=== PATIENT | male | born 1965 | race Hispanic/Latino ===

== ENCOUNTER 2016-08-21 09:08 | Emergency (ER) | payer OTHER ==
[~2016-08-21] VITALS: Ht 175.3 cm; Wt 89.8 kg
--- NOTE | 2016-08-21 09:20 | ED GENERAL ADULT ---
History of Present Illness General Chief Complaint: General Adult Stated Complaint: weakness Source: patient, family, old records Exam Limitations: no limitations Vital Signs & Intake/Output Vital Signs & Intake/Output Vital Signs Date Time Temp Pulse Resp B/P B/P Pulse O2 O2 Flow FiO2 Mean Ox Delivery Rate 08/21 1126 97.2 73 16 111/69 98 Room Air 08/21 0912 97.3 83 15 137/82 96 Room Air Room Air Allergies Coded Allergies: venom-honey bee (Mild, HIVES 08/21/16) Reconcile Medications Aspirin (Aspirin*) 81 MG TAB.CHEW 1 TAB PO DAILY HEART HEALTH (Reported) Cinnamon Bark (Cinnamon) 500 MG CAPSULE 2 CAP PO DAILY SUPPLEMENT (Reported) Sitagliptin Phos/Metformin HCl (Janumet XR 50-1,000 MG Tablet) 50 MG-1,000 MG TBMP.24HR 2 TAB PO DAILY DIABETES (Reported) Triage Note: PT TO ED FOR C/C OF WEAKNESS, COLD SWEATS, ABD PAIN THAT HAPPENED AROUND 0700 TODAY WITH VOMITING X 1. FEELS LIKE HE NEEDS TO HAVE BM BUT CAN'T. DIARRHEA YESTERDAY. DENIES UA SYMPTOMS. AFEBRILE IN TRIAGE. PT IS DIABETIC, F/S 134 IN TRIAGE Triage Nurses Notes Reviewed? yes Onset: Abrupt Duration: hour(s): (2.5) Timing: single episode today Severity: mild, moderate Severity Numbers: 5 No Modifying Factors: none Associated Symptoms: diaphoresis HPI: 50-year-old male with a history of NIDDM presents complaining of weakness sweats chills vomiting and abdominal pain that started at 7 AM this morning. Patient reports symptoms started abruptly and he had felt fine the night before. He reports waking up and vomiting one time and had mild lower abdominal pain. Since then he has felt very weak and has been having episodes of sweats and chills. Patient also reports a single episode of diarrhea without blood yesterday. He has not eaten or drank anything yet today. Since the one episode of vomiting his abdominal pain has gone away and he currently denies any pain whatsoever. No sick contacts, recent travel, recent antibiotic use, chest pain back pain or urinary symptoms fever, rash. (ANNELIESE MCGRAW PA-C) Past History Travel History Traveled to [place] past 21 day No Medical History Any Pertinent Medical History? see below for history Neurological: NONE Endocrine: TYPE II DM Blood Disorders: NONE Cancer(s): NONE DIRECTOR OF HOME ECONOMICS/Reproductive: NONE Surgical History Surgical History: none Psychosocial History Who do you live with Spouse What is your primary language Sami Tobacco Use: Never used ETOH Use: occasional use Illicit Drug Use: denies illicit drug use Family History Hx Contributory? No (ANNELIESE MCGRAW PA-C) Review of Systems Review of Systems Constitutional: Reports: see HPI, chills, diaphoresis. EENTM: Reports: no symptoms. Respiratory: Reports: no symptoms. Cardiovascular: Reports: no symptoms. GI: Reports: see HPI, diarrhea, nausea. Genitourinary: Reports: no symptoms. Musculoskeletal: Reports: no symptoms. Skin: Reports: no symptoms. Neurological/Psychological: Reports: see HPI, weakness. Hematologic/Endocrine: Reports: no symptoms. Immunologic/Allergic: Reports: no symptoms. All Other Systems: Reviewed and Negative (ANNELIESE MCGRAW PA-C) Physical Exam Physical Exam General Appearance: well developed/nourished, no apparent distress, alert, awake , anxious Head: atraumatic, normal appearance Eyes: Bilateral: normal appearance, PERRL, EOMI. Ears, Nose, Throat: normal pharynx, normal ENT inspection Neck: normal inspection, supple, full range of motion Respiratory: normal breath sounds, chest non-tender, no respiratory distress, lungs clear Cardiovascular: regular rate/rhythm Peripheral Pulses: 2+ radial (R), 2+ radial (L), 2+ dorsalis pedis (R), 2+ dorsalis pedis (L) Gastrointestinal: normal bowel sounds, soft, non-tender, no organomegaly Back: normal inspection, normal range of motion, no vertebral tenderness Extremities: normal inspection, normal capillary refill, normal range of motion, no edema Neurologic/Psych: no motor/sensory deficits, awake, alert, oriented x 3, normal gait, normal mood/affect Reflexes: 2+: knee (R), knee (L). Skin: intact, normal color, warm/dry Lymphatic: no anterior cervical kita Core Measures ACS in differential dx? Yes CVA/TIA Diagnosis: No Severe Sepsis Present: No Septic Shock Present: No (ANNELIESE MCGRAW PA-C) Progress Differential Diagnoses I considered the following diagnoses in my evaluation of the patient: Acute coronary syndrome, anemia, viral gastroenteritis, IBS, UTI, electrolyte abnormality, DKA, hypoglycemia Plan of Care: Orders Procedure Date/time Status TSH REFLEX 08/21 938 Complete MAGNESIUM 08/21 938 Complete EKG 08/21 932 Active URINALYSIS 08/22 931 Active TROPONIN LEVEL 08/22 931 Complete LIPASE 08/22 931 Complete C-REACTIVE PROTEIN 08/22 931 Complete COMPREHENSIVE METABOLIC PANEL 08/22 931 Complete CBC WITHOUT DIFFERENTIAL 08/22 931 Complete AMYLASE 08/22 931 Complete Laboratory Tests 08/21/16938: Anion Gap 10, Estimated GFR > 60, BUN/Creatinine Ratio 18.6, Glucose 176 H, Calcium 9.2, Magnesium 1.8, Total Bilirubin 0.5, AST 20, ALT 47, Alkaline Phosphatase 66, Troponin I < 0.01, C-Reactive Prot, Quant 1.1 H, Total Protein 6.7, Albumin 4.0, Globulin 2.7, Albumin/Globulin Ratio 1.5, Amylase 57, Lipase 106, TSH &T3 &Free T4 Intrp 0.607, CBC w Diff NO MAN DIFF REQ, RBC 5.19, MCV 86.5, MCH 29.5, RDW 12.6, MPV 8.8, Gran % 72.0, Lymphocytes % 18.1 L, Monocytes % 8.0, Eosinophils % 1.4, Basophils % 0.5, Absolute Granulocytes 4.8, Absolute Lymphocytes 1.2, Absolute Monocytes 0.5, Absolute Eosinophils 0.1, Absolute Basophils 0, PUBS MCHC 34.1 08/21/1638: Magnesium Cancelled, TSH &T3 &Free T4 Intrp Cancelled 945AM: Patient evaluated at bedside and labs drawn. EKG ordered. Patient's abdomen is currently nontender and nondistended and patient denies any pain. At this time currently is reporting weakness. He does not want any medication for pain or nausea. 11:23 AM all labs are within normal limits. EKG is similar to previous and patient reports having a cardiac cath 3 years ago due to abnormal EKG. He denies ever experiencing any chest pain or shortness of breath. Patient is feeling much better after resting and IV fluids. He currently denies any pain and is longer feeling weak. Patient will be discharged home and will follow up with his primary care doctor. Case was discussed with Dr. Centeno and she is in agreement with the plan. (LUCIEN GARCIA,ANNELIESE) Initial ED EKG: normal sinus rhythm, LEFT ATRIAL ABNORMALITY, LAD, ABNORMAL t WAVES, LATERAL LEADS. sIMILAR COMPARED TO PREVIOUS TRACING Prior EKG: unchanged (ANNELIESE MCGRAW PA-C) Departure Departure Disposition: HOME OR SELF CARE Condition: Stable Clinical Impression Primary Impression: Weakness Referrals: YARITZA NELSON (PCP/Family) Additional Instructions: Resting plan fluids continue home medications as directed. Make a follow-up with your primary care doctor to go over all lab results and to reassess symptoms. Return to emergency department as needed. Departure Forms: Customer Survey General Discharge Information (ANNELIESE MCGRAW PA-C) PA/DOUBLE END TENONER SETTER Co-Sign Statement Statement: ED Attending supervision documentation- [X] I saw and evaluated the patient. I have also reviewed all the pertinent lab results and diagnostic results. I agree with the findings and the plan of care as documented in the PA's/DOUBLE END TENONER SETTER's documentation. [X] I have reviewed the ED Record and agree with the PA's/DOUBLE END TENONER SETTER's documentation. [] Additions or exceptions (if any) to the PAs/DOUBLE END TENONER SETTER's note and plan are summarized below: [] (JENNY VARNER,JB) Critical Care Note Critical Care Note Critical Care Time: non-applicable (ANNELIESE MCGRAW PA-C)
[2016-08-21] MEDS ORDERED: JANUMET XR 50-1 EAC1 PO (09:53)
[2016-08-21] MEDS ORDERED: ASPIRIN81 M4 PO (09:54)
[2016-08-21] MEDS ORDERED: CINNAMON500 M1 PO (09:54)
[2016-08-21 09:59] LABS: ABSOLUTE BASOPHIL COUNT 0 /CUMM (0.0-0.2); ABSOLUTE EOSINOPHIL COUNT 0.1 /CUMM (0.0-0.7); ABSOLUTE GRANULOCYTE CT 4.8 /CUMM (1.4-6.5); ABSOLUTE LYMPH COUNT 1.2 /CUMM (1.2-3.4); ABSOLUTE MONOCYTE COUNT 0.5 /CUMM (0.10-0.60); BASOPHIL % 0.5 % (0.0-2.0); EOSINOPHIL % 1.4 % (0-5); HEMATOCRIT 44.9 % (42-52); MEAN CORPUSCULAR HGB 29.5 PG (27.0-31.0); MEAN CORPUSCULAR HGB CONC 34.1 G/DL (33.0-37.0); MEAN CORPUSCULAR VOLUME 86.5 FL (80.0-94.0); MEAN PLATELET VOLUME 8.8 FL (7.4-10.4); PLATELET COUNT 231 /CUMM (130-400); RBC DISTRIBUTION WIDTH 12.6 % (11.5-14.5); RED BLOOD CELL CT 5.19 /CUMM (4.70-6.10); WHITE BLOOD CELL COUNT 6.7 /CUMM (4.8-10.8)
[2016-08-21 11:26] VITALS: BP 111/69
== END 2016-08-21 11:27 ==
LOC: ERH 09:08
PROVIDERS: Physician Assistant Medical
DX: R53.1 Weakness (principal); R11.10 Vomiting, unspecified; R10.9 Unspecified abdominal pain
CPT/HCPCS: 93005; 93010; 96360

== ENCOUNTER 2017-04-14 11:46 | Emergency (ER) | payer OTHER ==
[~2017-04-14] VITALS: Ht 175.3 cm; Wt 92.1 kg
[~2017-04-14 11:46] MED LIST: ASPIRIN81 M4 PO; CINNAMON500 M1 PO; JANUMET XR 50-1 EAC1 PO
[2017-04-14] MEDS ORDERED: GLUCOPHAGE1000 M1 PO (12:03)
[2017-04-14] MEDS ORDERED: MULTIVITAMINS1 EAC9 PO (12:04)
[2017-04-14] MEDS ORDERED: VIAGRA50 MG PO (12:04)
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
[2017-04-14 14:20] VITALS: BP 147/86
[2017-04-14] MEDS ORDERED: IBUPROFEN400 M1 PO (14:20)
[2017-04-14] MEDS ORDERED: CYCLOBENZAPRINE10 M1 PO (14:20)
== END 2017-04-14 14:31 ==
LOC: ERH 11:46
DX: S16.1XXA Strain of muscle, fascia and tendon at neck level, initial encounter (principal); V49.40XA Driver injured in collision with unspecified motor vehicles in traffic accident, initial encounter; Y92.9 Unspecified place or not applicable
CPT/HCPCS: 72020; 72050